=== PATIENT | male | born 1950 | race African-American/Black ===

== ENCOUNTER 2019-08-17 04:38 | Inpatient (IN) ==
[2019-08-17] MEDS ORDERED: levETIRAcetam 500 MG/5 ML VIAL IV ONE (04:47)
[2019-08-17] MEDS ORDERED: ACETAMINOPHEN 650 MG SUPP RECTAL ONE (04:48)
[2019-08-17] MEDS ORDERED: SODIUM CHLORIDE 0.9% 500 ML IV STA (04:51)
[2019-08-17] MEDS ORDERED: ACETAMINOPHEN 650 MG SUPP RECTAL STA (04:51)
[2019-08-17 04:57] LABS: Hematocrit 37.8 VOL% (42.0-52.0); Hemoglobin 11.9 GM/DL (14.0-18.0); Red Blood Count 3.89 MC/CUMM (3.8-5.5); White Blood Count 4.1 T/CUMM (4-12)
[2019-08-17 04:58] LABS: Basophils % 0.5 % (0.0-0.8); Immature Granulocytes % 1.4 %; Immature Granulocytes Absolute 0.06 #; Lymphocytes # 0.6 10*3/uL (1.4-4.0); Lymphocytes % 14.5 % (21.2-54.2); Mean Corpuscular HGB Conc 31.5 GM/DL (32-36); Mean Corpuscular Volume 97.2 FL (87-102); Mean Platelet Volume 10.8 FL (9.6-12.0); Monocytes % 2.4 % (1.7-12.7); Neutrophils % 81.2 % (38.7-73.9); Platelet Count 131 T/CUMM (130-400); Red Cell Distribution Width 12.4 % (9.3-17.3)
[2019-08-17] MEDS ORDERED: PIPERACILLIN/TAZOBACTAM 3,375 MG in SODIUM CHLORIDE 0.9% 100 ML IV STA (05:09)
[2019-08-17] MEDS ORDERED: PIPERACILLIN/TAZOBACTAM 3,375 MG VIAL IV ONE (05:10)
[2019-08-17 05:11] LABS: Apearance,Urine CLOUDY (Clear); Bacteria,Urine Many /HPF (Few); Bilirubin,Urine Negative (Negative); Blood, Urine Large mg/dL (Negative); Glucose,Urine (UA) Negative (Negative); Hyaline Casts,Urine 5 /LPF (0-3); Ketones,Urine 5 mg/dL (Negative); Mucus,Urine Occasional /LPF (Occasional); Nitrite,Urine Negative (Negative); Protein,Urine 30 MG/DL; RBC,Urine 425 /HPF (0-4); Squamous Epithelial Cell,Urine Occasional /HPF (0-10); Urine Color Amber (Yellow); Urine Specific Gravity 1.018 (1.001-1.035); WBC,Urine 143 /HPF (0-6)
[2019-08-17] MEDS ORDERED: SODIUM CHLORIDE 0.9% 100 ML IV ONE (05:11)
[2019-08-17 05:13] LABS: Barbiturates Screen,Urine Negative (Negative); Benzodiazepines Screen,Urine Positive (Negative); Cannabinoid Screen,Urine Negative (Negative); Opiate Screen,Urine Positive (Negative); Phencyclidine Screen,Urine Negative (Negative)
[2019-08-17] MEDS ORDERED: SODIUM CHLORIDE 0.9% 1,000 ML IV STA (05:20)
[2019-08-17] MEDS ORDERED: SODIUM CHLORIDE 0.9% 2,800 ML IV ONE (05:21)
[2019-08-17 05:36] LABS: Alanine Aminotransferase 31 U/L (16-61); Albumin 2.9 G/DL (3.4-5.0); Alkaline Phosphatase 81 U/L (45-117); Aspartate Amino Transferase 26 U/L (0-37); Blood Urea Nitrogen 28 MG/DL (7-18); Calcium 8.9 MG/DL (8.5-10.1); Estimated Glom Filtration Rate 48 ML/MIN; Glucose 122 MG/DL (74-106); Osmolality,Calculated 283.5 MOS/KG (273-304); Thyroid Stimulating Hormone 0.386 uIU/ml (0.358-3.74); Total Protein 7.3 G/DL (6.4-8.3); Troponin I 0.027 NG/ML (0.00-0.045)
[2019-08-17 05:41] LABS: ABG Base Excess 0.1 MMOL/L (-2.5-2.5); ABG HCO3 24.5 MMOL/L (20-26); ABG Oxygen Saturation 94.1 % (95-100); ABG PCO2 32.8 MM HG (35-48); ABG PO2 67.9 MM HG (80-95); Allen Test Positive; Pt O2 Delivery Device Room Air
[2019-08-17] MEDS ORDERED: MAGNESIUM SULF RIDER 2 GM in PREMIX 1 EACH IV STA (05:45)
[2019-08-17] MEDS ORDERED: VANCOMYCIN INJ 1,000 MG in SODIUM CHLORIDE 0.9% 250 ML IV STA (05:50)
[2019-08-17] MEDS ORDERED: VANCOMYCIN 1,000 MG VIAL ONE (05:51)
[2019-08-17 06:03] LABS: Sedimentation Rate-Westergren 80 MM/HR (0-20)
[2019-08-17] MEDS: SODIUM CHLORIDE 0.9% 1,000 ML IV SCH ×2 (06:30→15:24)
[2019-08-17] MEDS ORDERED: hydrALAZINE 20 MG/1 ML VIAL IV PRN (06:31)
[2019-08-17] MEDS ORDERED: ALBUTEROL 2.5 MG/3 ML NEB RESP TX PRN (06:31)
[2019-08-17] MEDS ORDERED: ONDANSETRON 4 MG/2 ML VIAL IV PRN (06:31)
[2019-08-17] MEDS ORDERED: ACETAMINOPHEN 325 MG TABLET PO PRN (06:31)
[2019-08-17] MEDS ORDERED: ACETAMINOPHEN 650 MG SUPP RECTAL PRN (06:31)
[2019-08-17] MEDS: ENOXAPARIN 40 MG/0.4 ML SYRINGE SUBCUT SCH (06:53)
[2019-08-17] MEDS ORDERED: MAGNESIUM SULF RIDER 2 GM in PREMIX 1 EACH IV ONE (10:04)
[2019-08-17] MEDS: LACTULOSE 20 GM/30 ML UDCUP PO SCH ×3 (10:58→20:22)
[2019-08-17] MEDS: cefTRIAXone 1,000 MG in SYRINGE 1 EACH IV SCH (10:58)
[2019-08-17] MEDS ORDERED: PIPERACILLIN/TAZOBACTAM 3,375 MG in SODIUM CHLORIDE 0.9% 100 ML IV SCH (13:00)
[2019-08-18 04:50] LABS: Basophils % 0.2 % (0.0-0.8); Eosinophils % 0.3 % (0.00-10.9); Hemoglobin 11.7 GM/DL (14.0-18.0); Immature Granulocytes % 1.5 %; Immature Granulocytes Absolute 0.19 #; Lymphocytes # 1.7 10*3/uL (1.4-4.0); Lymphocytes % 13.1 % (21.2-54.2); Mean Corpuscular HGB Conc 31.6 GM/DL (32-36); Mean Corpuscular Volume 97.1 FL (87-102); Mean Platelet Volume 11.2 FL (9.6-12.0); Monocytes % 10.9 % (1.7-12.7); Platelet Count 148 T/CUMM (130-400); Red Blood Count 3.81 MC/CUMM (3.8-5.5); Red Cell Distribution Width 12.5 % (9.3-17.3); White Blood Count 12.9 T/CUMM (4-12)
[2019-08-18 05:19] LABS: Albumin 2.5 G/DL (3.4-5.0); Bilirubin,Total 1.2 MG/DL (0.2-1.0); Calcium 8.7 MG/DL (8.5-10.1); Total Protein 6.8 G/DL (6.4-8.3)
[2019-08-18] MEDS: SODIUM CHLORIDE 0.9% 1,000 ML IV SCH (05:20)
[2019-08-18] MEDS: ENOXAPARIN 40 MG/0.4 ML SYRINGE SUBCUT SCH (08:33)
[2019-08-18] MEDS: cefTRIAXone 1,000 MG in SYRINGE 1 EACH IV SCH (08:33)
[2019-08-18] MEDS: LACTULOSE 20 GM/30 ML UDCUP PO SCH (09:41)
[2019-08-18] MEDS ORDERED: LOSARTAN 50 MG TABLET PO SCH (10:00)
[2019-08-18] MEDS: TAMSULOSIN 0.4 MG CAPSULE PO SCH (10:21)
[2019-08-18] MEDS: metroNIDAZOLE INJ 500 MG in PREMIX 1 EACH IV SCH ×3 (10:21→22:39)
[2019-08-18] MEDS: amLODIPine 10 MG TABLET PO SCH (10:21)
[2019-08-18] MEDS ORDERED: LOSARTAN 50 MG TABLET PO ONE (12:06)
[2019-08-18] MEDS: LOSARTAN 50 MG TABLET PO SCH (12:36)
[2019-08-18] MEDS: traMADol 50 MG TABLET PO PRN ×2 (15:06→22:39)
[2019-08-19 03:54] LABS: ABG Base Excess 1.3 MMOL/L (-2.5-2.5); ABG HCO3 25.5 MMOL/L (20-26); ABG Oxygen Saturation 97.2 % (95-100); ABG PCO2 32.8 MM HG (35-48); ABG PH 7.477 (7.35-7.45); ABG PO2 84.7 MM HG (80-95); ABG TCO2 21.5 MMOL/L (23-27); Allen Test Positive
[2019-08-19 04:36] LABS: Basophils % 0.4 % (0.0-0.8); Eosinophils % 0.4 % (0.00-10.9); Hematocrit 35.5 VOL% (42.0-52.0); Hemoglobin 11.1 GM/DL (14.0-18.0); Immature Granulocytes % 1.6 %; Immature Granulocytes Absolute 0.13 #; Lymphocytes # 1.4 10*3/uL (1.4-4.0); Lymphocytes % 16.5 % (21.2-54.2); Mean Corpuscular HGB Conc 31.3 GM/DL (32-36); Mean Corpuscular Volume 98.1 FL (87-102); Mean Platelet Volume 11.3 FL (9.6-12.0); Monocytes % 8.8 % (1.7-12.7); Neutrophils % 72.3 % (38.7-73.9); Platelet Count 179 T/CUMM (130-400); Red Blood Count 3.62 MC/CUMM (3.8-5.5); Red Cell Distribution Width 12.2 % (9.3-17.3); White Blood Count 8.3 T/CUMM (4-12)
[2019-08-19 05:02] LABS: Albumin 2.3 G/DL (3.4-5.0); Bilirubin,Total 1.4 MG/DL (0.2-1.0); Calcium 8.2 MG/DL (8.5-10.1); Osmolality,Calculated 284.1 MOS/KG (273-304); Total Protein 6.1 G/DL (6.4-8.3)
[2019-08-19 05:07] LABS: Eosinophils 1 % (0-10); Hypochromasia 1+; Lymphocytes 10 % (20-55); Platelet Estimate Adequate; Segmented Neutrophils 82 % (50-85); Total Cells Counted 100
[2019-08-19] MEDS: metroNIDAZOLE INJ 500 MG in PREMIX 1 EACH IV SCH (06:17)
[2019-08-19] MEDS: LACTULOSE 20 GM/30 ML UDCUP PO SCH (09:23)
[2019-08-19] MEDS: ENOXAPARIN 40 MG/0.4 ML SYRINGE SUBCUT SCH (09:24)
[2019-08-19] MEDS: LOSARTAN 50 MG TABLET PO SCH (09:24)
[2019-08-19] MEDS: TAMSULOSIN 0.4 MG CAPSULE PO SCH (09:24)
[2019-08-19] MEDS: cefTRIAXone 1,000 MG in SYRINGE 1 EACH IV SCH (09:24)
[2019-08-19] MEDS: amLODIPine 10 MG TABLET PO SCH (09:24)
[2019-08-19] MEDS: traMADol 50 MG TABLET PO PRN ×3 (09:36→22:10)
[2019-08-19] MEDS: hydroCHLOROthiazide 12.5 MG CAPSULE PO SCH (12:34)
[2019-08-20] MEDS: traMADol 50 MG TABLET PO PRN ×2 (04:20→10:32)
[2019-08-20 06:59] LABS: Basophils % 0.2 % (0.0-0.8); Eosinophils % 0.1 % (0.00-10.9); Immature Granulocytes % 1.4 %; Immature Granulocytes Absolute 0.16 #; Lymphocytes # 1.5 10*3/uL (1.4-4.0); Lymphocytes % 13.5 % (21.2-54.2); Mean Corpuscular HGB Conc 33.3 GM/DL (32-36); Mean Platelet Volume 11.3 FL (9.6-12.0); Monocytes % 7.3 % (1.7-12.7); Neutrophils % 77.5 % (38.7-73.9); Platelet Count 211 T/CUMM (130-400); Red Blood Count 3.87 MC/CUMM (3.8-5.5); Red Cell Distribution Width 11.9 % (9.3-17.3); White Blood Count 11.4 T/CUMM (4-12)
[2019-08-20 07:14] LABS: Calcium 8.8 MG/DL (8.5-10.1); Osmolality,Calculated 268.2 MOS/KG (273-304)
[2019-08-20] MEDS: cefTRIAXone 1,000 MG in SYRINGE 1 EACH IV SCH (10:24)
[2019-08-20] MEDS: ENOXAPARIN 40 MG/0.4 ML SYRINGE SUBCUT SCH (10:24)
[2019-08-20] MEDS: LACTULOSE 20 GM/30 ML UDCUP PO SCH (10:24)
[2019-08-20] MEDS: hydroCHLOROthiazide 12.5 MG CAPSULE PO SCH (10:25)
[2019-08-20] MEDS: amLODIPine 10 MG TABLET PO SCH (10:25)
[2019-08-20] MEDS: TAMSULOSIN 0.4 MG CAPSULE PO SCH (10:25)
[2019-08-20] MEDS: LOSARTAN 50 MG TABLET PO SCH (10:25)
[2019-08-20 12:33] VITALS: BP 155/75
== END 2019-08-20 14:39 | disposition home or self-care (01) | DRG 871 ==
LOC: EDUNIT# → EDBD → N.ED 04:38 → N.EDINP 05:43 → SUPCPDRO 05:43 → SUATTDRO 05:43 → N.CC 06:07 → N.2E 08-19 13:47
PROVIDERS: ADMIT Internal Medicine; ATTEND Internal Medicine

== ENCOUNTER 2022-07-19 11:20 | Inpatient (IN) ==
[2022-07-19 11:48] LABS: Basophils % 0.3 % (0.0-0.8); Eosinophils % 0.1 % (0.00-10.9); Hematocrit 34.9 VOL% (42.0-52.0); Hemoglobin 11.6 GM/DL (14.0-18.0); Immature Granulocytes % 0.6 %; Immature Granulocytes Absolute 0.09 #; Lymphocytes # 2.4 10*3/uL (1.4-4.0); Lymphocytes % 16.3 % (21.2-54.2); Mean Corpuscular HGB Conc 33.2 GM/DL (32-36); Mean Corpuscular Volume 90.4 FL (87-102); Mean Platelet Volume 10.7 FL (9.6-12.0); Monocytes % 6.6 % (1.7-12.7); Neutrophils % 76.1 % (38.7-73.9); Platelet Count 169 T/CUMM (130-400); Red Blood Count 3.86 MC/CUMM (3.8-5.5); Red Cell Distribution Width 12.7 % (9.3-17.3); White Blood Count 14.5 T/CUMM (4-12)
[2022-07-19 11:59] LABS: Bacteria,Urine Occasional /HPF (Few); Bilirubin,Urine Negative (Negative); Blood, Urine Negative (Negative); Glucose,Urine (UA) Negative (Negative); Ketones,Urine Trace mg/dL (Negative); Nitrite,Urine Negative (Negative); Protein,Urine 30 mg/dL (Negative); RBC,Urine <1 /HPF (0-4); Squamous Epithelial Cell,Urine Few /HPF (0-10); Urine Appearance Clear (Clear); Urine Color Yellow (Yellow); Urine pH 8.5 (4.5-8.0)
[2022-07-19 12:06] LABS: Calcium 8.3 MG/DL (8.5-10.1); Osmolality,Calculated 280.4 MOS/KG (273-304); Potassium 3.5 MMOL/L (3.5-5.1)
[2022-07-19] MEDS ORDERED: CLINDAMYCIN INJ 900 MG/50 ML PREMIX IV STA (12:06)
[2022-07-19] MEDS ORDERED: ALBUTEROL 2.5 MG/3 ML NEB RESP TX PRN (15:28)
[2022-07-19] MEDS ORDERED: ONDANSETRON 4 MG/2 ML VIAL IV PRN (15:28)
[2022-07-19] MEDS ORDERED: SIMETHICONE CHEW 125 MG TABLET PO PRN (15:28)
[2022-07-19] MEDS ORDERED: hydrALAZINE 20 MG/1 ML VIAL IV PRN (15:28)
[2022-07-19] MEDS: ENOXAPARIN 40 MG/0.4 ML SYRINGE SUBCUT SCH (16:39)
[2022-07-19] MEDS: LACTATED RINGERS 1,000 ML IV SCH (16:48)
[2022-07-19] MEDS ORDERED: MAGNESIUM SULF RIDER 2 GM/50 ML PREMIX IV ONE (17:13)
[2022-07-19 18:17] LABS: % Iron Saturation 14.2 % (18-50)
[2022-07-19 18:23] LABS: 25 Hydroxy Vitamin D Total 6.8 NG/ML (30-100); Folate 11.4 NG/ML (5.38-24.0)
[2022-07-19] MEDS: CLINDAMYCIN INJ 600 MG/50 ML PREMIX IV SCH (21:28)
[2022-07-19] MEDS: DOCUSATE SODIUM 100 MG CAPSULE PO PRN (21:30)
[2022-07-19] MEDS: GABAPENTIN 100 MG CAPSULE PO SCH (21:30)
[2022-07-19] MEDS: ACETAMINOPHEN 325 MG TABLET PO PRN (21:31)
[2022-07-20] MEDS: CLINDAMYCIN INJ 600 MG/50 ML PREMIX IV SCH ×3 (04:55→21:09)
[2022-07-20] MEDS: LACTATED RINGERS 1,000 ML IV SCH ×3 (04:55→15:00)
[2022-07-20 05:57] LABS: Basophils % 0.2 % (0.0-0.8); Eosinophils % 0.4 % (0.00-10.9); Hematocrit 29.5 VOL% (42.0-52.0); Hemoglobin 9.6 GM/DL (14.0-18.0); Immature Granulocytes % 0.5 %; Immature Granulocytes Absolute 0.05 #; Lymphocytes # 1.6 10*3/uL (1.4-4.0); Lymphocytes % 17.4 % (21.2-54.2); Mean Corpuscular HGB Conc 32.5 GM/DL (32-36); Mean Corpuscular Volume 91.6 FL (87-102); Mean Platelet Volume 10.4 FL (9.6-12.0); Monocytes # 0.8 10*3/uL (0.11-0.8); Monocytes % 8.3 % (1.7-12.7); Neutrophils % 73.2 % (38.7-73.9); Platelet Count 140 T/CUMM (130-400); Red Blood Count 3.22 MC/CUMM (3.8-5.5); Red Cell Distribution Width 12.7 % (9.3-17.3); White Blood Count 9.4 T/CUMM (4-12)
[2022-07-20 06:17] LABS: Albumin 2.2 G/DL (3.4-5.0); Bilirubin,Total 1.6 MG/DL (0.20-1.00); Osmolality,Calculated 277.7 MOS/KG (273-304); Risk Ratio 2.67; Thyroid Stimulating Hormone 0.464 uIU/ml (0.358-3.74); Total Protein 6.3 G/DL (6.4-8.2); VLDL Cholesterol 12.4 MG/DL
[2022-07-20 06:23] LABS: Anisocytosis Slight; Platelet Estimate Adequate
[2022-07-20] MEDS ORDERED: POTASSIUM CHLORIDE 20 MEQ TABLET PO ONE (07:25)
[2022-07-20] MEDS: CHOLECALCIFEROL 5,000 UNIT TABLET PO SCH ×2 (09:18→21:07)
[2022-07-20] MEDS: GABAPENTIN 100 MG CAPSULE PO SCH ×2 (09:18→21:08)
[2022-07-20] MEDS: PANTOPRAZOLE 40 MG TABLET PO SCH (09:18)
[2022-07-20] MEDS: amLODIPine 5 MG TABLET PO SCH (12:15)
[2022-07-20] MEDS: ENOXAPARIN 40 MG/0.4 ML SYRINGE SUBCUT SCH (13:38)
[2022-07-20] MEDS: ACETAMINOPHEN 325 MG TABLET PO PRN ×2 (17:18→21:08)
[2022-07-20] MEDS: FERROUS SULFATE 325 MG TABLET PO SCH (21:08)
[2022-07-20] MEDS: DOCUSATE SODIUM 100 MG CAPSULE PO PRN (21:08)
[2022-07-21] MEDS: LACTATED RINGERS 1,000 ML IV SCH ×2 (00:59→21:47)
[2022-07-21] MEDS: CLINDAMYCIN INJ 600 MG/50 ML PREMIX IV SCH ×3 (04:15→20:12)
[2022-07-21] MEDS: GABAPENTIN 100 MG CAPSULE PO SCH ×2 (10:01→20:11)
[2022-07-21] MEDS: PANTOPRAZOLE 40 MG TABLET PO SCH (10:02)
[2022-07-21] MEDS: amLODIPine 5 MG TABLET PO SCH (10:02)
[2022-07-21] MEDS: CHOLECALCIFEROL 5,000 UNIT TABLET PO SCH ×2 (10:02→20:11)
[2022-07-21] MEDS: FERROUS SULFATE 325 MG TABLET PO SCH ×2 (10:02→20:11)
[2022-07-21] MEDS: ACETAMINOPHEN 325 MG TABLET PO PRN ×2 (10:06→20:12)
[2022-07-21 11:57] LABS: Osmolality,Calculated 284.1 MOS/KG (273-304); Potassium 3.4 MMOL/L (3.5-5.1)
[2022-07-21] MEDS: DOCUSATE SODIUM 100 MG CAPSULE PO PRN (20:11)
[2022-07-21] MEDS: ENOXAPARIN 40 MG/0.4 ML SYRINGE SUBCUT SCH (20:12)
[2022-07-22 04:07] LABS: Basophils % 0.3 % (0.0-0.8); Eosinophils # 0.1 10*3/uL (0.0-0.87); Eosinophils % 1.6 % (0.00-10.9); Hematocrit 25.7 VOL% (42.0-52.0); Hemoglobin 8.6 GM/DL (14.0-18.0); Immature Granulocytes % 0.5 %; Immature Granulocytes Absolute 0.04 #; Lymphocytes # 1.6 10*3/uL (1.4-4.0); Lymphocytes % 21.4 % (21.2-54.2); Mean Corpuscular HGB Conc 33.5 GM/DL (32-36); Mean Corpuscular Volume 90.8 FL (87-102); Mean Platelet Volume 10.3 FL (9.6-12.0); Monocytes # 0.5 10*3/uL (0.11-0.8); Monocytes % 6.8 % (1.7-12.7); Neutrophils % 69.4 % (38.7-73.9); Platelet Count 145 T/CUMM (130-400); Red Blood Count 2.83 MC/CUMM (3.8-5.5); Red Cell Distribution Width 12.8 % (9.3-17.3); White Blood Count 7.6 T/CUMM (4-12)
[2022-07-22 04:28] LABS: Calcium 7.2 MG/DL (8.5-10.1); Osmolality,Calculated 285.1 MOS/KG (273-304); Potassium 2.8 MMOL/L (3.5-5.1)
[2022-07-22] MEDS: CLINDAMYCIN INJ 600 MG/50 ML PREMIX IV SCH ×2 (04:34→12:24)
[2022-07-22] MEDS ORDERED: MAGNESIUM SULF RIDER 2 GM/50 ML PREMIX IV PRN (04:59)
[2022-07-22] MEDS ORDERED: MAGNESIUM SULF RIDER 4 GM/100 ML PREMIX IV PRN (04:59)
[2022-07-22] MEDS: POTASSIUM CHLORIDE 20 MEQ TABLET PO PRN ×4 (05:26→12:27)
[2022-07-22] MEDS: GABAPENTIN 100 MG CAPSULE PO SCH ×2 (09:15→20:15)
[2022-07-22] MEDS: ACETAMINOPHEN 325 MG TABLET PO PRN ×2 (09:15→20:16)
[2022-07-22] MEDS: amLODIPine 5 MG TABLET PO SCH (09:15)
[2022-07-22] MEDS: CHOLECALCIFEROL 5,000 UNIT TABLET PO SCH ×2 (09:15→20:16)
[2022-07-22] MEDS: FERROUS SULFATE 325 MG TABLET PO SCH ×2 (09:15→20:16)
[2022-07-22] MEDS: PANTOPRAZOLE 40 MG TABLET PO SCH (09:16)
[2022-07-22] MEDS: LACTATED RINGERS 1,000 ML IV SCH (11:01)
[2022-07-22] MEDS ORDERED: cefTRIAXone 1,000 MG VIAL IM SCH (13:30)
[2022-07-22] MEDS: cefTRIAXone 2,000 MG in SODIUM CHLORIDE 0.9% 100 ML IV SCH (14:54)
[2022-07-22] MEDS: ENOXAPARIN 40 MG/0.4 ML SYRINGE SUBCUT SCH (20:16)
[2022-07-23 05:47] LABS: Basophils % 0.4 % (0.0-0.8); Eosinophils # 0.1 10*3/uL (0.0-0.87); Eosinophils % 1.7 % (0.00-10.9); Hematocrit 26.4 VOL% (42.0-52.0); Hemoglobin 8.6 GM/DL (14.0-18.0); Immature Granulocytes % 0.7 %; Immature Granulocytes Absolute 0.05 #; Lymphocytes # 1.5 10*3/uL (1.4-4.0); Lymphocytes % 21.3 % (21.2-54.2); Mean Corpuscular HGB Conc 32.6 GM/DL (32-36); Mean Corpuscular Volume 91.3 FL (87-102); Mean Platelet Volume 10.5 FL (9.6-12.0); Monocytes # 0.5 10*3/uL (0.11-0.8); Monocytes % 6.3 % (1.7-12.7); Neutrophils % 69.6 % (38.7-73.9); Platelet Count 174 T/CUMM (130-400); Red Blood Count 2.89 MC/CUMM (3.8-5.5); Red Cell Distribution Width 13.2 % (9.3-17.3); White Blood Count 7.2 T/CUMM (4-12)
[2022-07-23 06:16] LABS: Albumin 1.8 G/DL (3.4-5.0); Bilirubin,Total 0.4 MG/DL (0.20-1.00); Calcium 8.2 MG/DL (8.5-10.1); Osmolality,Calculated 284.1 MOS/KG (273-304); Potassium 3.6 MMOL/L (3.5-5.1); Total Protein 6.1 G/DL (6.4-8.2)
[2022-07-23] MEDS: LACTATED RINGERS 1,000 ML IV SCH ×2 (06:52→09:20)
[2022-07-23] MEDS: CHOLECALCIFEROL 5,000 UNIT TABLET PO SCH ×2 (09:20→20:25)
[2022-07-23] MEDS: ACETAMINOPHEN 325 MG TABLET PO PRN (09:20)
[2022-07-23] MEDS: PANTOPRAZOLE 40 MG TABLET PO SCH (09:20)
[2022-07-23] MEDS: FERROUS SULFATE 325 MG TABLET PO SCH ×2 (09:20→20:25)
[2022-07-23] MEDS: GABAPENTIN 100 MG CAPSULE PO SCH ×2 (09:20→20:25)
[2022-07-23] MEDS: amLODIPine 10 MG TABLET PO SCH (09:26)
[2022-07-23] MEDS: traMADol 50 MG TABLET PO PRN ×2 (10:31→16:08)
[2022-07-23] MEDS: POTASSIUM CHLORIDE 20 MEQ TABLET PO PRN ×2 (10:31→12:12)
[2022-07-23] MEDS: cefTRIAXone 2,000 MG in SODIUM CHLORIDE 0.9% 100 ML IV SCH (16:10)
[2022-07-23] MEDS: ENOXAPARIN 40 MG/0.4 ML SYRINGE SUBCUT SCH (20:25)
[2022-07-23] MEDS: SKIN HEALING OINT (AQUAPHOR) 50 GM TUBE TOP SCH (20:33)
[2022-07-24] MEDS: traMADol 50 MG TABLET PO PRN ×2 (00:43→09:08)
[2022-07-24] MEDS: LACTATED RINGERS 1,000 ML IV SCH (00:43)
[2022-07-24 06:19] LABS: Basophils % 0.4 % (0.0-0.8); Eosinophils # 0.2 10*3/uL (0.0-0.87); Eosinophils % 1.9 % (0.00-10.9); Hematocrit 28.9 VOL% (42.0-52.0); Hemoglobin 9.5 GM/DL (14.0-18.0); Immature Granulocytes % 0.6 %; Immature Granulocytes Absolute 0.05 #; Lymphocytes # 1.8 10*3/uL (1.4-4.0); Lymphocytes % 22.3 % (21.2-54.2); Mean Corpuscular HGB Conc 32.9 GM/DL (32-36); Mean Corpuscular Volume 91.2 FL (87-102); Mean Platelet Volume 10.2 FL (9.6-12.0); Monocytes # 0.5 10*3/uL (0.11-0.8); Monocytes % 6.2 % (1.7-12.7); Neutrophils % 68.6 % (38.7-73.9); Platelet Count 225 T/CUMM (130-400); Red Blood Count 3.17 MC/CUMM (3.8-5.5); Red Cell Distribution Width 12.9 % (9.3-17.3); White Blood Count 8.1 T/CUMM (4-12)
[2022-07-24 06:37] LABS: Albumin 2.1 G/DL (3.4-5.0); Bilirubin,Total 0.4 MG/DL (0.20-1.00); Calcium 8.6 MG/DL (8.5-10.1); Osmolality,Calculated 276.5 MOS/KG (273-304); Potassium 4.1 MMOL/L (3.5-5.1); Total Protein 6.8 G/DL (6.4-8.2)
[2022-07-24 07:43] VITALS: BP 170/73
[2022-07-24] MEDS: amLODIPine 10 MG TABLET PO SCH (09:09)
[2022-07-24] MEDS: FERROUS SULFATE 325 MG TABLET PO SCH (09:09)
[2022-07-24] MEDS: CHOLECALCIFEROL 5,000 UNIT TABLET PO SCH (09:09)
[2022-07-24] MEDS: PANTOPRAZOLE 40 MG TABLET PO SCH (09:09)
[2022-07-24] MEDS: GABAPENTIN 100 MG CAPSULE PO SCH (09:09)
[2022-07-24] MEDS: SKIN HEALING OINT (AQUAPHOR) 50 GM TUBE TOP SCH (09:56)
[2022-07-24] MEDS ORDERED: TUBERCULIN SKIN TEST 0.1 ML SYRINGE INTRADERM ONE (11:00)
== END 2022-07-24 10:56 | DRG 603 ==
LOC: N.ED 11:20 → SUATTDRO 15:28 → N.2E 15:28
PROVIDERS: ADMIT Internal Medicine; ATTEND Emergency Medicine